=== PATIENT | female | born 1950 | race Caucasian/White ===

== ENCOUNTER 2021-01-21 17:51 | Emergency (ER) | payer MEDICARE ==
[~2021-01-21] VITALS: Ht 154.9 cm; Wt 53.4 kg
[~2021-01-21 17:51] MED LIST: AMLO-211 PO; ATOR10TA PO; CYAN50003 PO; ERGO500017 PO; ESCI20TA8 PO; LACT1CAP35 PO; LORA10TA75 PO; OMEG-133 PO; UBID30CA9 PO; [UNRECOGNIZED DRUG - OTHER] PO; [UNRECOGNIZED DRUG - OTHER] PO
[2021-01-21 17:58] VITALS: BP 143/75
--- NOTE | 2021-01-21 18:01 | NUR ---
TRIAGE: PATIENT FELL LAST WEDNESDAY, INJURY TO LEFT SHOULDER.
--- NOTE | 2021-01-21 18:31 | NUR ---
PATIENT RELATIONS SPECIALIST: PT TO ROOM FROM [facility]
--- NOTE | 2021-01-21 18:45 | NUR ---
JORGE A, ER PA AT BEDSIDE, PT ASSESSMENT AND POC DISCUSSED, ORDERS REC'D. CALLLIGHT W/I REACH
--- NOTE | 2021-01-21 19:23 | NUR ---
TESTS RESULTED, BALDOMERO JULES AT BEDSIDE, TESTS RESULTED AND D/C POC DISCUSSED, QUESTIONS ANSWERED.
--- NOTE | 2021-01-21 19:38 | NUR ---
Patient/Caregiver given discharge instructions and they have confirmed that they understand the instructions. Patient ambulatory with steady gait.
== END 2021-01-21 20:08 | disposition home or self-care (01) ==
LOC: ED 19:30
DX: M25.512 Pain in left shoulder (principal); I10 Essential (primary) hypertension; W01.0XXA Fall on same level from slipping, tripping and stumbling without subsequent striking against object, initial encounter; Y93.89 Activity, other specified; Y92.009 Unspecified place in unspecified non-institutional (private) residence as the place of occurrence of the external cause; Y99.8 Other external cause status
CPT/HCPCS: 99283

== ENCOUNTER 2021-06-11 11:01 | Outpatient (CLI) | payer MEDICARE | END 2021-06-11 23:59 | disposition home or self-care (01) | LOC: CVU 11:01 | PROVIDERS: ATTEND Internal Medicine Cardiovascular Disease | DX: I08.0 Rheumatic disorders of both mitral and aortic valves (principal); R01.1 Cardiac murmur, unspecified | CPT/HCPCS: 93306 ==